=== PATIENT | female | born 1945 | race Caucasian/White ===

== ENCOUNTER 2018-04-25 11:30 | Emergency (ER) | payer MEDICARE ==
[~2018-04-25] VITALS: Ht 172.7 cm; Wt 84.0 kg
[2018-04-25] MEDS ORDERED: RISP0.253 PO (11:41)
[2018-04-25] MEDS ORDERED: RISP1TAB3 PO (11:41)
[2018-04-25] MEDS ORDERED: PARO30TA3 PO (11:41)
[2018-04-25] MEDS ORDERED: CLON-365 PO (11:42)
[2018-04-25] MEDS ORDERED: RISP0.5T3 PO (11:42)
[2018-04-25] MEDS ORDERED: LEVO25TA4 PO (11:43)
[2018-04-25] MEDS ORDERED: ZOLP-413 PO (11:43)
[2018-04-25] MEDS ORDERED: CYAN1TAB29 PO (11:44)
[2018-04-25] MEDS ORDERED: MULT-717 PO (11:44)
[2018-04-25] MEDS ORDERED: UBID100C41 PO (11:45)
[2018-04-25] MEDS ORDERED: CALC200T3 PO (11:45)
[2018-04-25] MEDS ORDERED: CHOL200024 PO (11:45)
[2018-04-25] MEDS ORDERED: NAPR220C2 PO (11:46)
[2018-04-25] MEDS ORDERED: ASCO100019 PO (11:46)
[2018-04-25] MEDS ORDERED: ACET325T14 PO (11:47)
[2018-04-25] MEDS ORDERED: ASPI1TAB31 PO (11:47)
[2018-04-25] MEDS ORDERED: IBUP200C5 PO (11:47)
[2018-04-25] MEDS ORDERED: LIDOCAINE-MPF 1%, 5ML ONE ×2 (12:18→12:20)
[2018-04-25] MEDS ORDERED: LIDOCAINE 2%, 20ML SQ ONE (12:30)
[2018-04-25 13:13] VITALS: BP 166/71
== END 2018-04-25 13:18 | disposition home or self-care (01) ==
LOC: ED 13:12
DX: S01.81XA Laceration without foreign body of other part of head, initial encounter (principal); E03.9 Hypothyroidism, unspecified; G25.81 Restless legs syndrome; W01.198A Fall on same level from slipping, tripping and stumbling with subsequent striking against other object, initial encounter; Y93.01 Activity, walking, marching and hiking; Y92.89 Other specified places as the place of occurrence of the external cause; Y99.8 Other external cause status
CPT/HCPCS: 12013; 70450; 93005; 99284

== ENCOUNTER → 2018-08-17 | Outpatient (CLI) | payer MEDICARE ==
[~2018-08-17] MED LIST: ACET325T14 PO; ASCO100019 PO; ASPI1TAB31 PO; CALC200T3 PO; CHOL200024 PO; CLON1TAB4 PO; CYAN1TAB29 PO; IBUP-1623 PO; LEVO25TA4 PO; MULT-717 PO; NAPR220C2 PO; PARO30TA3 PO; RISP0.253 PO; RISP0.5T3 PO; RISP1TAB3 PO; UBID100C41 PO; ZOLP-413 PO
== END | disposition home or self-care (01) ==
LOC: CFH 11:57
PROVIDERS: ATTEND Family Medicine
DX: Z00.01 Encounter for general adult medical examination with abnormal findings (principal); Z12.31 Encounter for screening mammogram for malignant neoplasm of breast; Z13.820 Encounter for screening for osteoporosis; M85.89 Other specified disorders of bone density and structure, multiple sites; N95.8 Other specified menopausal and perimenopausal disorders
CPT/HCPCS: 77080; 77067

== ENCOUNTER → 2018-11-18 | Outpatient (CLI) | payer MEDICARE ==
[~2018-11-18] MED LIST changes: +CLON1TAB11 PO; -CLON1TAB4 PO; +OMNIPAQUE 350 MG/ML, 100ML BOTTLE ONE
== END | disposition home or self-care (01) ==
LOC: CFH 13:32
PROVIDERS: ATTEND Student in an Organized Health Care Education/Training Program
DX: R59.1 Generalized enlarged lymph nodes (principal); D49.0 Neoplasm of unspecified behavior of digestive system
CPT/HCPCS: 70491; 82565; Q9967

== ENCOUNTER 2021-01-20 11:39 | Outpatient (CLI) | payer MEDICARE ==
[~2021-01-20 11:39] MED LIST changes: -OMNIPAQUE 350 MG/ML, 100ML BOTTLE ONE; -RISP0.5T3 PO; +RISP0.5T62 PO; -RISP1TAB3 PO; +RISP1TAB90 PO
== END 2021-01-20 23:59 | disposition home or self-care (01) ==
LOC: CFH 11:39
PROVIDERS: ATTEND Family Medicine
DX: M85.88 Other specified disorders of bone density and structure, other site (principal); N95.9 Unspecified menopausal and perimenopausal disorder
CPT/HCPCS: 77080